=== PATIENT | female | born 2000 | race Caucasian/White ===

== ENCOUNTER 2022-11-17 06:13 | Emergency (ER) | payer BC ==
[~2022-11-17] VITALS: Ht 162.6 cm; Wt 50.0 kg
[2022-11-17 06:18] VITALS: BP 114/73; O2SAT 97
[2022-11-17] MEDS ORDERED: AMOX1TAB16 MT (06:56)
[2022-11-17 07:07] VITALS: PULSE 87; RESP 16; TEMP 98.4
== END 2022-11-17 07:07 | disposition home or self-care (01) ==
LOC: ER 06:13
DX: T19.2XXA Foreign body in vulva and vagina, initial encounter (principal); X58.XXXA Exposure to other specified factors, initial encounter; Y93.89 Activity, other specified; Y92.89 Other specified places as the place of occurrence of the external cause; Y99.8 Other external cause status
CPT/HCPCS: 99284; Z7610 ×3